=== PATIENT | female | born 1985 | race African-American/Black ===

== ENCOUNTER 2017-10-15 15:50 | Emergency (ER) | payer OTHER ==
[2017-10-15] MEDS ORDERED: ACETAMINOPHEN 325 MG TABLET PO ONE (16:08)
[2017-10-15] MEDS ORDERED: CEFTRIAXONE INJ 1000 MG VIAL IM ONE (16:41)
[2017-10-15] MEDS ORDERED: LIDOCAINE 1% INJ-PF (10 MG/ML) 30 ML SDV INJ ONE (16:41)
[2017-10-15] MEDS ORDERED: DEXAMETHASONE SOD PHOS INJ 10 MG/1 ML VIAL IM ONE (16:41)
--- NOTE | 2017-10-15 16:44 | ER Document Report ---
ED ENT - General Chief Complaint: Sore Throat Stated Complaint: SORE THROAT Time Seen by Provider: 10/15/17 16:28 Mode of Arrival: Ambulatory Information source: Patient Notes: Patient is a 32 year old female who presents to the ER today for 2 days of sore throat, pain with eatingOr talking. Patient admits to fever as high as 103F which she also has here in the emergency department. Patient has not been taking anything for the fever or pain at home. She denies any cough, runny nose or other symptoms. TRAVEL OUTSIDE OF THE [place] IN LAST 30 DAYS: No - Related Data Allergies/Adverse Reactions: No Known Allergies Allergy (Verified 10/15/17 16:12) Past Medical History - General Information source: Patient - Social History Smoking Status: Never Smoker Frequency of alcohol use: None Drug Abuse: None Family History: Reviewed & Not Pertinent Patient has suicidal ideation: No Patient has homicidal ideation: No Renal/ Medical History: Denies: Hx Peritoneal Dialysis Review of Systems - Review of Systems Constitutional: See HPI EENT: See HPI Cardiovascular: No symptoms reported Respiratory: No symptoms reported Gastrointestinal: No symptoms reported Genitourinary: No symptoms reported Female Genitourinary: No symptoms reported Musculoskeletal: No symptoms reported Skin: No symptoms reported Hematologic/Lymphatic: No symptoms reported Neurological/Psychological: No symptoms reported Physical Exam - Vital signs Vitals: Temp Pulse Resp BP Pulse Ox 103.0 F H 117 H 16 116/68 98 10/15/17 15:55 10/15/17 15:55 10/15/17 15:55 10/15/17 15:55 10/15/17 15:55 - Notes Notes: No PHYSICAL EXAMINATION: GENERAL: Mildly ill-appearing, but in no acute distress. HEAD: Atraumatic, normocephalic. EYES: Pupils equal round and reactive to light, extraocular movements intact, sclera anicteric, conjunctiva are normal. ENT: ear canals without erythema or foreign body, TMs pearly de jesus with good bony landmarks, nares patent, oropharynx erythematous with bilaterally enlarged tonsils with white exudates. Moist mucous membranes. NECK: Normal range of motion, supple without lymphadenopathy LUNGS: CTAB and equal. No wheezes rales or rhonchi. HEART: Regular rate and rhythm without murmurs EXTREMITIES: Normal range of motion, no pitting edema. No cyanosis. NEUROLOGICAL: Cranial nerves grossly intact. Normal sensory/motor exams. PSYCH: Normal mood, normal affect. SKIN: Warm, Dry, normal turgor, no rashes or lesions noted Course - Re-evaluation Re-evalutation: 10/15/17 16:43 Patient positive for strep, received Decadron injection and Rocephin injection here. I will send her home on antibiotics and steroids. - Vital Signs Vital signs: Temp Pulse Resp BP Pulse Ox 100.5 F H 102 H 16 116/69 98 10/15/17 17:06 10/15/17 17:06 10/15/17 15:55 10/15/17 17:06 10/15/17 17:06 Discharge - Discharge Clinical Impression: Strep pharyngitis Condition: Stable Disposition: HOME, SELF-CARE Additional Instructions: Return immediately for any new or worsening symptoms. Follow up with primary care provider, call tomorrow to make followup appointment. Prescriptions: Amoxicillin 500 mg PO TID #30 capsule Methylprednisolone [Medrol Dosepack (4 mg/Tab) 21 Tab/Dosepak] 4 mg PO ASDIR PRN #21 tab.ds.pk PRN Reason: Nystatin/Dexameth/Diphen [Magic Mouthwash (Omh Formula) Susp] 5 ml PO QID #120 ml Forms: Return to Work
[2017-10-15 17:08] VITALS: BP 116/69
== END 2017-10-15 17:05 | disposition home or self-care (01) ==
LOC: ER 15:50
DX: J02.0 Streptococcal pharyngitis (principal); R50.9 Fever, unspecified
CPT/HCPCS: 99283; 96372; 87880; J3490; J0696; J1100